=== PATIENT | female | born 1975 | race Caucasian/White ===

== ENCOUNTER → 2022-02-06 07:41 | Outpatient (CLI) | payer SELFPAY ==
--- NOTE | ~2022-02-06 | MMUS_ITS ---
EXAMINATION: MM diagnostic rimma LT w linette, US breast LT complete HISTORY: Follow-up left breast mass TECHNIQUE: Additional 3-D tomosynthesis images of the left breast were performed and synthetic 2-D im ages were generated. CAD analysis was submitted and interpreted. High resolution complete left breast ultrasound was performed. COMPARISON: 02/01/2022 BREAST PARENCHYMAL COMPOSITION: The breasts are heterogeneously dense, which may obscure small masses FINDINGS: MAMMOGRAPHIC FINDINGS: There are multiple masses in the upper outer quadrant of the left what breast which are obscured by o verlying fibroglandular tissue. There are no suspicious calcifications or architectural distortion. ULTRASOUND: Complete left breast US of all 4 quadrants of the breasts and retroareolar region was reviewed. There are multiple cysts of the left breast, largest measuring up to 2.6 cm at 12:00, 0.5 cm from the nipp le. At 2:00, 5 cm from the nipple there is an oval hypoechoic mass with internal echoes measuring 5 m m, likely benign. At 7:00, 4 cm from the nipple there is an oval hypoechoic mass without posterior ac oustic features or internal vascularity measuring 3 mm. IMPRESSION: 1. Probable benign left breast masses at 2:00, 5 cm from the nipple measuring 5 mm and 7:00, 4 cm fro m the nipple measuring 3 mm. 2. Recommend 6 month follow-up Limited left breast ultrasound BI-RADS category 3, probably benign findings. Reviewed, dictated and finalized at location A. IMPRESSION: 1. Probable benign left breast masses at 2:00, 5 cm from the nipple measuring 5 mm and 7:00, 4 cm from the nipple measuring 3 mm. 2. Recommend 6 month follow-up Limited left breast ultrasound BI-RADS category 3, probably benign findings.
== END ==
PROVIDERS: PCP Internal Medicine; Visit Provider Internal Medicine
DX: R92.2 Inconclusive mammogram (principal); R92.8 Other abnormal and inconclusive findings on diagnostic imaging of breast
CPT/HCPCS: 76641; 77061; 77065; G0279